=== PATIENT | female | born 1940 | race Asian ===

== ENCOUNTER 2017-10-21 22:00 | Emergency (ER) | payer MEDICAID ==
[~2017-10-21] VITALS: Ht 152.4 cm; Wt 49.9 kg
[2017-10-21 22:00] VITALS: BP 171/88
[~2017-10-21 22:00] MED LIST: ALENDRONATE SOD10 MG ORAL; ARICEPT5 MG ORAL; CALTRATE 600 +1 EAC2 PO; CLOPIDOGREL75 MG ORAL; LOSARTAN POTASS50 MG ORAL; NORVASC10 MG ORAL; POTASSIUM99 M2 PO; SIMVASTATIN20 MG ORAL
[2017-10-21] MEDS ORDERED: PLAVIX75 MG ORAL (22:04)
[2017-10-21] MEDS ORDERED: ATORVASTATIN CA10 MG ORAL (22:04)
[2017-10-21] MEDS ORDERED: ADALAT10 MG ORAL (22:04)
--- NOTE | 2017-10-21 22:10 | Emergency Room Report ---
History of Present Illness General Chief Complaint: Head Injury Source: Family Member, EMS Present Illness HPI Patient is a 77-year-old female brought in by EMS after a witnessed head trauma. The patient had been noted to have increased bleeding from a scalp wound. It is unknown how the patient sustained injury.The patient was found in bed by her daughter after she came home from work.The patient was noted to have slightly elevated blood sugar by EMS. Patient is reportedly at her baseline mental status Allergies: Coded Allergies: No Known Allergies (Unverified , 03/15/16) Patient History Last Menstrual Period: NA Now: No Reviewed Nursing Documentation: PMH: Agreed, PSxH: Agreed Nursing Documentation-PMH Hx Hypertension: Yes Hx Neurological Problems: Yes - dementia Review of Systems All Other Systems: negative except mentioned in HPI Physical Exam Vital Signs Date Time Temp Pulse Resp B/P (MAP) Pulse Ox O2 Delivery O2 Flow Rate FiO2 10/21/17 21:57 98.8 68 18 171/88 100 Room Air Sp02 EP Interpretation: reviewed, normal General Appearance: normal inspection, alert, Chronically Ill Head: other - occipital scalp swelling ENT: normal ENT inspection, hearing grossly normal Neck: normal inspection, full range of motion, supple, no bony tend Respiratory: normal inspection, lungs clear, normal breath sounds, no respiratory distress, no retraction, no wheezing Cardiovascular #1: regular rate, rhythm, no edema Gastrointestinal: normal inspection, normal bowel sounds, non tender, soft, no guarding, no hernia Genitourinary: no CVA tenderness Musculoskeletal: normal inspection, back normal, normal range of motion Neurologic: normal inspection, alert, responsive, motor strength/tone normal, speech normal Psychiatric: normal inspection, judgement/insight normal, mood/affect normal Skin: normal inspection, normal color, no rash Medical Decision Making Diagnostic Impression: Primary Impression: Fall Additional Impressions: Subdural hematoma Cardiomegaly ER Course The patient presented for head injury.Differential diagnosis included was not limited to neck fracture, CVA, close head injury, syncopal episode, basilar ischemia. Because of complexity of patient's case laboratory testing and imaging studies were ordered. CT imaging of the head showed acute subdural hematoma on the left side. There is no evident midline shift. The patient was noted to have normal pupil size blood pressure was known be elevated. Patient given IV Vasotec as well as Keppra for seizure prophylaxis. The patient be transferred for a higher level of care. Patient was discussed with Dr. Heath from [facility] for higher level of care transfer. Labs Test 10/21/17 22:10 10/21/17 22:30 White Blood Count 8.0 K/UL (4.8-10.8) Red Blood Count 4.09 M/UL (4.20-5.40) Hemoglobin 12.4 G/DL (12.0-16.0) Hematocrit 37.3 % (37.0-47.0) Mean Corpuscular Volume 91 FL (80-99) Mean Corpuscular Hemoglobin 30.4 PG (27.0-31.0) Mean Corpuscular Hemoglobin Concent 33.4 G/DL (32.0-36.0) Red Cell Distribution Width 11.6 % (11.6-14.8) Platelet Count 234 K/UL (150-450) Mean Platelet Volume 8.0 FL (6.5-10.1) Neutrophils (%) (Auto) 64.5 % (45.0-75.0) Lymphocytes (%) (Auto) 20.6 % (20.0-45.0) Monocytes (%) (Auto) 8.5 % (1.0-10.0) Eosinophils (%) (Auto) 5.1 % (0.0-3.0) Basophils (%) (Auto) 1.3 % (0.0-2.0) Last Vital Signs Date Time Temp Pulse Resp B/P (MAP) Pulse Ox O2 Delivery O2 Flow Rate FiO2 10/21/17 21:57 98.8 68 18 171/88 100 Room Air Status: unchanged Disposition: XFER SHT-TRM HOSP Condition: Critical Piter Givens Oct 21, 2017 22:10
[2017-10-21 22:39] LABS: BASOPHILS % (AUTO) 1.3 % (0.0-2.0); EOSINOPHILS % (AUTO) 5.1 % (0.0-3.0); HEMATOCRIT 37.3 % (37.0-47.0); HEMOGLOBIN 12.4 G/DL (12.0-16.0); LYMPHOCYTES % (AUTO) 20.6 % (20.0-45.0); MEAN CORPUSCULAR VOLUME 91 FL (80-99); MONOCYTES % (AUTO) 8.5 % (1.0-10.0); NEUTROPHILS % (AUTO) 64.5 % (45.0-75.0); PLATELET COUNT 234 K/UL (150-450); RED BLOOD COUNT 4.09 M/UL (4.20-5.40); RED CELL DISTRIBUTION WIDTH 11.6 % (11.6-14.8)
[2017-10-21] MEDS ORDERED: Enalaprilat 2.5mg/2ml Inj IV ONE (22:45)
[2017-10-21] MEDS ORDERED: levETIRAcetam 1,000mg/NS100ml 100 ML IVPB ONE (22:45)
[2017-10-21 22:53] LABS: ANION GAP 7 mmol/L (5-15); BLOOD UREA NITROGEN 38 mg/dL (7-18); CALCIUM 9.1 MG/DL (8.5-10.1); CARBON DIOXIDE 31 MMOL/L (21-32); CHLORIDE 102 MMOL/L (98-107); CREATININE 1.6 MG/DL (0.55-1.30); POTASSIUM 3.6 MMOL/L (3.5-5.1); SODIUM 139 MMOL/L (136-145)
[2017-10-21 23:05] LABS: ALANINE AMINOTRANSFERASE 15 U/L (12-78); ALBUMIN 3.9 G/DL (3.4-5.0); ALKALINE PHOSPHATASE 93 U/L (46-116); ASPARTATE AMINO TRANSFERASE 19 U/L (15-37); BILIRUBIN,TOTAL 0.2 MG/DL (0.2-1.0)
[2017-10-22] VITALS: BP 150/88
[2017-10-22 02:00] VITALS: BP 146/88
[2017-10-22 02:10] VITALS: BP 146/88
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
--- NOTE | 2017-10-22 12:04 | Diagnostic Imaging Report ---
Indication: Fall, pain, contusions Technique: One view of the chest Comparison: none Findings: Suboptimal inspiration. Lungs and pleural spaces grossly clear except for minimal atelectasis at the left lung base. The heart is borderline enlarged. The aorta is tortuous and ectatic and calcified. Bones are osteoporotic. There are degenerative changes of the left humeral head. Old healed left rib fracture deformities are noted Impression: Cardiomegaly No acute process
== END 2017-10-22 02:10 | disposition short-term general hospital (02) ==
LOC: EDBD 22:00 → EMR 22:30
DX: S06.5X9A Traumatic subdural hemorrhage with loss of consciousness of unspecified duration, initial encounter (principal); I10 Essential (primary) hypertension; F03.90 Unspecified dementia, unspecified severity, without behavioral disturbance, psychotic disturbance, mood disturbance, and anxiety; I51.7 Cardiomegaly; W19.XXXA Unspecified fall, initial encounter; Y92.009 Unspecified place in unspecified non-institutional (private) residence as the place of occurrence of the external cause
CPT/HCPCS: 36415; 70450; 71045; 72125; 80053; 80307; 80329; 82140; 84443; 84484; 85025; 96365; 96375; 99285; J1953